=== PATIENT | female | born 1960 | race Caucasian/White ===

== ENCOUNTER 2016-10-03 09:35 | Outpatient (CLI) | payer OTHER ==
--- NOTE | 2016-10-04 07:26 | DIAGNOSTIC IMAGING REPORT ---
PROCEDURE: US ABDOMEN ULTRASOUND-COMPLETE INDICATION: ABD PP PAIN TECHNIQUE: Rosenthal scale and color Doppler sonographic images of the abdomen were obtained without comparison. COMPARISON: None. FINDINGS: The liver is normal in size, and contour but mildly coarse in echotexture, non-specific. No mass or intrahepatic biliary dilatation. The gallbladder is partially distended. There is adherent, nonshadowing 3 mm soft tissue focus in the mid body. No internal vascularity. No obstructing calculi. No sludge. The wall is normal thickness measuring 2 mm No pericholecystic fluid or Ortez sign. The extrahepatic common duct is mildly enlarged measuring 8 mm. No visible choledocholithiasis. The pancreas and mid to distal abdominal aorta were not well seen. The retrohepatic inferior vena cava is patent. There is appropriate hepatopetal flow in the portal vein. The right kidney measures 11.5 cm in length. The left kidney measures 12.2 cm in length. Mild right hydronephrosis. Otherwise normal right renal morphology. Left kidney demonstrate normal morphology and cortical thickness without hydronephrosis, cyst, solid mass, or shadowing calculus. Color Doppler imaging demonstrates normal blood flow in each kidney. The spleen is normal in size measuring 11.0 cm in length. There is no perihepatic or perisplenic ascites. IMPRESSION: 1. 3 mm adherent, nonshadowing gallstone versus avascular gallbladder polyp. Follow-up ultrasound in 1 year is recommended. 2. Mildly dilated common duct without evidence of choledocholithiasis on the current study. No intrahepatic biliary dilatation. Recent passage of a small calculus is not excluded. Correlate with LFTs. Consider HIDA scan or MRCP for further imaging. 3. Mild right hydronephrosis without visualized obstructing stone. Correlate with UA. Consider non-contrast CT abdomen pelvis. 4. Nonvisualization of the pancreas or mid to distal abdominal aorta.
[2016-11-14] MEDS ORDERED: ASPIRIN ADULT L81 M1 PO (11:30)
[2016-11-14] MEDS ORDERED: CALCIUM 1000 + D PO (11:30)
[2016-11-14] MEDS ORDERED: COQ10100 MG PO (11:31)
[2016-11-14] MEDS ORDERED: GARLIC10 MG PO (11:32)
[2016-11-14] MEDS ORDERED: FISH OIL1000 M1 PO (11:32)
[2016-11-14] MEDS ORDERED: GINGER ROOT250 MG PO (11:33)
[2016-11-14] MEDS ORDERED: SIMVASTATIN80 MG PO (11:34)
[2016-11-14] MEDS ORDERED: VITAMIN C500 M1 PO (11:35)
[2016-11-14] MEDS ORDERED: VITAMIN D-31000 UNIT PO (11:35)
[2016-11-14] MEDS ORDERED: VITAMIN E200 UNIT PO (11:36)
[2016-11-14] MEDS ORDERED: PRILOSEC20 MG PO (12:14)
[2016-11-14] MEDS ORDERED: CRESTOR40 MG PO (12:15)
== END 2016-10-03 23:00 ==
LOC: US SRH 09:35
DX: R10.9 Unspecified abdominal pain (principal); N13.30 Unspecified hydronephrosis

== ENCOUNTER 2016-11-17 09:35 | Day surgery (SDC) | payer OTHER ==
[~2016-11-17] VITALS: Ht 162.6 cm; Wt 91.0 kg
[~2016-11-17 09:35] MED LIST: ASPIRIN ADULT L81 M1 PO; CALCIUM 1000 + D PO; COQ10100 MG PO; CRESTOR40 MG PO; FISH OIL1000 M1 PO; GARLIC10 MG PO; GINGER ROOT250 MG PO; PRILOSEC20 MG PO; SIMVASTATIN80 MG PO; VITAMIN C500 M1 PO; VITAMIN D-31000 UNIT PO; VITAMIN E200 UNIT PO
--- NOTE | 2016-11-17 10:18 | NUR ---
PT ADMITTED FOR LAP CHOLECYSTECTOMY. PT CONFIRMED HER NAME, , PLANNED PROCEDURE, NPO STATUS, MEDICATIONS AND ALLERGIES. PRE-OP TEACHING COMPLETED, QUESTIONS ANSWERED, CONSENT SIGNED. IV ACCESS ESTABLISHED.
--- NOTE | 2016-11-17 11:38 | DIAGNOSTIC IMAGING REPORT ---
PROCEDURE: XR INTRAOPERATIVE LAP HANNA INDICATION: CHOLELITHIASIS TECHNIQUE: Intraoperative fluoroscopy provided for Dr. Avina performing an intraoperative cholangiogram following cholecystectomy. Total fluoroscopy time 12 seconds. Cumulative dose 3.9 mGy. COMPARISON: None. FINDINGS: AP intraoperative fluoroscopic spot image of the right upper quadrant of the abdomen demonstrates cannulation of the cystic duct stump and opacification of the intrahepatic and extrahepatic biliary tree. There are no filling defects. There is normal passage of contrast into the duodenum. IMPRESSION: 1. Negative intraoperative cholangiogram.
[2016-11-17] MEDS ORDERED: NORCO1 TA1 PO (11:43)
--- NOTE | 2016-11-17 11:44 | Provider's Discharge Care Plan ---
Problem, Goal, Plan Problem List 1. S/P laparoscopic cholecystectomy
--- NOTE | 2016-11-17 11:44 | Provider's Discharge Care Plan ---
Problem, Goal, Plan Problem List 1. S/P laparoscopic cholecystectomy
--- NOTE | 2016-11-17 11:58 | NUR ---
ARRIVED TO UNIT, AWAKENS EASILY, COMLAINT OF A HIGH LEVEL OF ABDOMINAL PAIN, GREATER POST OPERATIVELY THAN PRIOR TO SURGERY, POSITIONED TO COMFORT, IV FENTANYL GIVEN, REPORTED NO INCREASE IN COMFORT LEVEL, VS CLOSELY MONITORED, DECREASE IN SAOS, BP, AND PULSE NOTED, ADDITIONAL SEDATION WITHHELD AT THIS TIME.
--- NOTE | 2016-11-17 12:46 | NUR ---
PT RECEIVED FROM PACU. EASILY AROUSABLE AND COMFORTABLE, REPORTS PAIN AT 5/10, UPPER ABDOMINAL PAIN, DENIES NAUSEA. O2 VIA NC AT 3L/MIN. TAKING ICE CHIPS PO.
--- NOTE | 2016-11-17 13:07 | NUR ---
PAIN LEVEL CONTROLLED AT TIME OF TRANSFER TO SCU. ABLE TO COUGH AND DEEP BREATH TO CLEAR UPPER AIRWAY. REPORT GIVEN
--- NOTE | 2016-11-17 13:20 | NUR ---
PT REPORTS LEFT ARM AND LEFT LEG FEELING "LIKE IT IS ASLEEP". BILATERALLY EQUAL STRENGTH IN ARMS AND LEGS, NO FACIAL DROOP, FACIAL EXPRESSIONS AND SMILE ARE SYMMETRICAL, SPEECH CLEAR. TAKING ICE CHIPS AND CLEAR LIQUIDS WITHOUT PROBLEMS. ANESTHESIA PROVIDER NOTIFIED.
--- NOTE | 2016-11-17 13:41 | OPERATIVE REPORT ---
DATE OF SURGERY: 11/17/2016 SURGEON: David Avina MD PREOPERATIVE DIAGNOSIS: 1. Chronic cholecystitis POSTOPERATIVE DIAGNOSIS: 1. Chronic cholecystitis PROCEDURE PERFORMED: 1. Laparoscopic cholecystectomy with cholangiography ANESTHESIA: General. INDICATIONS: The patient is a 56-year-old woman with recurrent food-induced right upper quadrant abdominal pain and a polyp or stone seen on ultrasound. SURGICAL TECHNIQUE: The patient was taken to the main operating room where a general anesthetic was administered and the patient prepped and draped in the usual sterile fashion. An orogastric tube, IV antibiotics, and sequential compression devices were in place. A local anesthetic of 0.5% Marcaine with epinephrine was used at each puncture site and instilled at the conclusion of the case. An intraumbilical incision was made and a Veress needle used to insufflate the abdominal cavity. A 10 mm cannula was passed and visualization was obtained. Three additional ports were placed in the usual locations and the gallbladder was elevated. There were adhesions to the anterior wall, which were taken down. The gallbladder was white, thick and opaque, consistent with chronic cholecystitis. The cystic duct was isolated at the neck of the gallbladder. A clip was placed and a fluoroscopic cholangiogram carried out. This demonstrated a tortuous cystic duct with free flow into the duodenum and no persistent filling defects. The cystic duct was doubly clipped and divided and the cystic artery clipped and divided. The gallbladder was detached from the liver using electrocautery. It was pulled up to the upper midline trocar site where it was emptied of contents and removed and submitted for histopathology. The operative site was inspected, irrigated and found be completely hemostatic, with no evidence of bile leak. Additional Marcaine was instilled, gas was evacuated, and the midline trocar sites were closed at the skin with interrupted subcuticular 4-0 Vicryl suture. Steri-Strips and dressings were placed, and the patient left in good condition. No intraoperative complications were encountered.
--- NOTE | 2016-11-17 13:45 | NUR ---
Ambulated one loop without problems. Now sitting in chair.
[2016-11-17 14:36] VITALS: BP 130/70
--- NOTE | 2016-11-17 15:03 | NUR ---
PT ATE SNACK AND TOLERATED WELL. AMBULATING IN ROOM WITHOUT DEFICIT. NUMBNESS IN LEFT LEG HAS COMPLETELY RESOLVED AND NUMB FEELING IN LEFT ARM IS MOSTLY GONE. PT WAS EVALUATED BY ANGELINA White CRNA. PT WISHES TO GO HOME. DISCHARGE INSTRUCTIONS REVIEWED WITH PT AND HER , QUESTIONS ANSWERED. PT INSTRUCTED IN USE OF IS AND DEMONSTRATED [id number] INSPIRATIONS. PT TAKEN TO EXIT VIA WC. BELONGINGS HOME WITH PT.
== END 2016-11-17 18:45 | disposition home or self-care (01) ==
LOC: OR SRH 09:35 → SCU SRH 09:35 → OR SRH 11:45
DX: K81.1 Chronic cholecystitis (principal); K82.8 Other specified diseases of gallbladder; Z72.0 Tobacco use; R20.0 Anesthesia of skin; R53.1 Weakness; Z86.73 Personal history of transient ischemic attack (TIA), and cerebral infarction without residual deficits
CPT/HCPCS: 29240; 50002; 60001; 70002; 80102; 80212; 80248; 80852; 82794; 82807; 83339; 83348; 83587; 83937; 83982; 84038